=== PATIENT | female | born 1985 | race Caucasian/White ===

== ENCOUNTER 2017-08-28 08:00 | Outpatient (CLI) | payer BC, OTHER ==
[2017-09-01 13:30] LABS: MUDS CUTOFF CONCENTRATIONS CUTOFF CONC BELOW:
[2017-09-01 13:31] LABS: AMPHETAMINE SCREEN,URINE NEGATIVE (NEGATIVE); BENZODIAZEPINES SCREEN, URINE NEGATIVE (NEGATIVE); COCAINE SCREEN URINE NEGATIVE (NEGATIVE); METHADONE SCREEN, URINE NEGATIVE (NEGATIVE); METHAMPHETAMINES SCREEN, URINE NEGATIVE (NEGATIVE); OPIATE SCREEN, URINE NEGATIVE (NEGATIVE); OXYCODONE SCREEN, URINE NEGATIVE (NEGATIVE); PROPOXYPHENE SCREEN, URINE NEGATIVE (NEGATIVE); TRICYCLIC ANTIDEPRESSANT,URINE NEGATIVE (NEGATIVE)
== END 2017-08-28 23:59 ==
LOC: LAB.R 08:00
PROVIDERS: ATTEND Nurse Practitioner Obstetrics & Gynecology
DX: Z34.81 Encounter for supervision of other normal pregnancy, first trimester (principal); Z11.3 Encounter for screening for infections with a predominantly sexual mode of transmission
CPT/HCPCS: 80306; 87491; 87591

== ENCOUNTER 2017-09-11 12:51 | Outpatient (CLI) | payer BC ==
[2017-09-11 13:07] LABS: BASOPHILS % (AUTO) 0.3 %; EOSINOPHILS % (AUTO) 0.5 %; HGB - HEMOGLOBIN 12.7 g/dL (12.0-16.0); LYMPHOCYTES # (AUTO) 2.2 10^3/uL (1.5-3.5); MEAN CORPUSCULAR HEMOGLOBIN 30.9 pg (27.0-31.0); MEAN CORPUSCULAR VOLUME 90.9 fL (81.0-99.0); MEAN PLATELET VOLUME 9.4 fL (7.9-10.8); MONOCYTES # (AUTO) 0.3 10^3/uL (0.0-1.0); MONOCYTES % (AUTO) 3.6 %; NEUTROPHILS # (AUTO) 6.2 10^3/uL (1.5-6.6); NEUTROPHILS % (AUTO) 70.6 %; PLT - PLATELET COUNT 230 10^3/uL (130-450); RED BLOOD COUNT 4.12 10^6/uL (4.20-5.40); RED CELL DISTRIBUTION WIDTH 13.2 % (12.0-15.0); WHITE BLOOD COUNT 8.8 x10^3/uL (4.8-10.8)
[2017-09-11 14:03] LABS: BILIRUBIN,URINE NEGATIVE (NEGATIVE); GLUCOSE, URINE (UA) NEGATIVE (NEGATIVE); KETONES,URINE (UA) NEGATIVE (NEGATIVE); LEUKOCYTE ESTERASE, URINE NEGATIVE (NEGATIVE); NITRITE,URINE NEGATIVE (NEGATIVE); OCCULT BLOOD,URINE NEGATIVE (NEGATIVE); PROTEIN,URINE NEGATIVE (NEGATIVE); UROBILINOGEN,URINE 0.2 (NORMAL) E.U./dL (NORMAL)
[2017-09-11 14:13] LABS: BACTERIA,URINE Many /HPF (None Seen); CLARITY,URINE CLEAR (CLEAR); OVAL FAT BODIES,URINE RARE /HPF; RBC,URINE 0-5 /HPF (0-5); SQUAMOUS EPITHELIAL CELL,UR MOD Squamous (<= Few)
[2017-09-14 08:57] LABS: HEPATITIS B SURFACE ANTIGEN NON-REACTIVE (NON-REACTIVE)
[2017-09-14 08:58] LABS: HEPATITIS C ANTIBODY NON-REACTIVE (NON-REACTIVE)
[2017-09-14 15:21] LABS: HIV AG/AB 4TH GEN NON-REACTIVE (NON-REACTIVE)
== END 2017-09-11 12:52 | disposition home or self-care (01) ==
LOC: LAB 12:51
PROVIDERS: ATTEND Nurse Practitioner Obstetrics & Gynecology
DX: Z34.81 Encounter for supervision of other normal pregnancy, first trimester (principal)
CPT/HCPCS: 36415; 81001; 81599; 85025; 86762; 86803; 86850; 86900; 86901; 87340; 87389

== ENCOUNTER 2017-11-19 07:34 | Outpatient (CLI) | payer BC ==
--- NOTE | 2017-11-19 10:09 | Ultrasound Report ---
Reason: ENCTR FOR SUPRVSN OF NORMAL , 2ND TRIMEST Procedure Date: 11/19/2017 Accession Number: [id number] / [id number] Procedure: US - OB Detailed Eval CPT Code: FULL RESULT: EXAM: COMPLETE OBSTETRICAL ULTRASOUND EXAM DATE: 11/19/2017 09:27 AM. CLINICAL HISTORY: anatomic survey. COMPARISON: None. TECHNIQUE: Real-time sonographic evaluation of the fetus performed by the hip hop dancer. Multiple real estate representative static images were saved for review. DATING: EGA 20 weeks 1 day with PAULETTE 04/07/2018 based on LMP of 07/01/2017. EGA 20 weeks 5 days with PAULETTE 04/03/2018 based on the current ultrasound. GENERAL EVALUATION Kong . Cardiac activity: 148 bpm. movement: Present. Presentation: Variable. Placenta: Anterior position with fundal wrap. No evidence for previa. Umbilical cord: 3 vessel cord. Central placental cord origin. Amniotic fluid: Subjectively normal. MVP 5.3 cm. BIOMETRY Bi-Parietal Diameter (BPD): 4.9 cm, 20 weeks 5 days Head Circumference (HC): 18.4 cm, 20 weeks 6 days Abdominal Circumference (AC): 15.6 cm, 20 weeks 5 days Femur Length (FL): 3.3 cm, 20 weeks 2 days Estimated Weight: 364 gm, 70th percentile . ANATOMY The intracranial structures, profile, face/nose/lips, spine, 4 chamber heart and outflow tracts, stomach, abdominal wall and cord insertion, diaphragm, kidneys, bladder, and extremities were imaged and demonstrate no abnormality. MATERNAL STRUCTURES Uterus: Unremarkable. Cervix: Long and closed. Transabdominal length 4.6 cm. Right ovary/adnexa: Unremarkable. Left ovary/adnexa: Unremarkable. Free fluid: None. IMPRESSION: 1. Kong intrauterine with gestational age 20 weeks 5 days based on composite ultrasound measurements today. 2. Estimated weight is within expected limits for assigned dating. 3. Normal anatomic survey. No anatomic abnormalities are detected at this time. 4. Assigned PAULETTE is 04/07/2018 based on LMP. [place]
== END 2017-11-19 07:35 | disposition home or self-care (01) ==
LOC: DI 07:34
PROVIDERS: ATTEND Registered Nurse
DX: Z34.82 Encounter for supervision of other normal pregnancy, second trimester (principal); Z3A.20 20 weeks gestation of pregnancy
CPT/HCPCS: 76811

== ENCOUNTER 2018-01-08 11:33 | Outpatient (CLI) | payer BC ==
[2018-01-08 18:11] LABS: HGB - HEMOGLOBIN 11.6 g/dL (12.0-16.0); MEAN CORPUSCULAR HEMOGLOBIN 32.7 pg (27.0-31.0); MEAN CORPUSCULAR HGB CONC 34.5 g/dL (32.0-36.0); MEAN CORPUSCULAR VOLUME 94.9 fL (81.0-99.0); MEAN PLATELET VOLUME 10.3 fL (7.9-10.8); RED BLOOD COUNT 3.56 10^6/uL (4.20-5.40); RED CELL DISTRIBUTION WIDTH 13.3 % (12.0-15.0); WHITE BLOOD COUNT 9.4 x10^3/uL (4.8-10.8)
== END 2018-01-08 11:34 | disposition home or self-care (01) ==
LOC: LAB.F 11:33
PROVIDERS: ATTEND Nurse Practitioner Obstetrics & Gynecology
DX: Z36.9 Encounter for antenatal screening, unspecified (principal)
CPT/HCPCS: 36415; 82950; 85027; 86850

== ENCOUNTER 2018-01-22 06:59 | Outpatient (CLI) | payer BC | END 2018-01-22 07:00 | disposition home or self-care (01) | LOC: LAB 06:59 | PROVIDERS: ATTEND Nurse Practitioner Obstetrics & Gynecology | DX: R73.02 Impaired glucose tolerance (oral) (principal) | CPT/HCPCS: 36415; 82951; 82952 ==

== ENCOUNTER 2018-03-05 14:38 | Outpatient (CLI) | payer BC | END 2018-03-05 23:59 | disposition home or self-care (01) | LOC: LAB.R 14:38 | PROVIDERS: ATTEND Registered Nurse | DX: Z33.1 Pregnant state, incidental (principal) | CPT/HCPCS: 87491; 87591; 87797 ==

== ENCOUNTER 2018-04-02 14:01 | Outpatient (CLI) | payer BC ==
[2018-04-03 12:17] LABS: HIV AG/AB 4TH GEN NON-REACTIVE (NON-REACTIVE)
[2018-04-03 12:56] LABS: HEPATITIS C ANTIBODY NON-REACTIVE (NON-REACTIVE)
== END 2018-04-02 14:02 | disposition home or self-care (01) ==
LOC: LAB.F 14:01
PROVIDERS: ATTEND Registered Nurse
DX: Z33.1 Pregnant state, incidental (principal)
CPT/HCPCS: 36415; 81599; 86803; 87389; 87522

== ENCOUNTER 2018-04-08 13:47 | Inpatient (IN) | payer BC ==
[2018-04-08] MEDS ORDERED: OXYTOCIN 10 UNIT/ML VIAL IM ONE (14:35)
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
[2018-04-08 16:09] LABS: BASOPHILS # (AUTO) 0.1 10^3/uL (0.0-0.1); BASOPHILS % (AUTO) 0.5 %; EOSINOPHILS % (AUTO) 0.1 %; HGB - HEMOGLOBIN 12.7 g/dL (12.0-16.0); LYMPHOCYTES # (AUTO) 1.8 10^3/uL (1.5-3.5); LYMPHOCYTES % (AUTO) 16.8 %; MEAN CORPUSCULAR HEMOGLOBIN 31.9 pg (27.0-31.0); MEAN CORPUSCULAR VOLUME 93.8 fL (81.0-99.0); MEAN PLATELET VOLUME 10.1 fL (7.9-10.8); MONOCYTES # (AUTO) 0.5 10^3/uL (0.0-1.0); MONOCYTES % (AUTO) 4.9 %; NEUTROPHILS # (AUTO) 8.5 10^3/uL (1.5-6.6); NEUTROPHILS % (AUTO) 77.7 %; PLT - PLATELET COUNT 185 10^3/uL (130-450); RED BLOOD COUNT 3.99 10^6/uL (4.20-5.40); RED CELL DISTRIBUTION WIDTH 13.1 % (12.0-15.0)
--- NOTE | 2018-04-08 18:25 | PROVIDER PROGRESS NOTE ---
Labor Progress Note - Uterine Monitoring Uterine Monitoring Mode: positive: Palpation Contraction Frequency (min/apart): 2-3 Contraction Intensity: positive: Strong Uterine Resting Tone: positive: Soft - Monitoring Monitor Mode: positive: Doppler/auscultation (130bpm +increases, no decreases) Heart Rate Baseline: 130 - Vaginal Exam Dilation (in cm): deferred - Labor Progress Note Labor Progress Note/Additional Text: S: Ayana is uncomfortable & utilizing nitrous oxide w/ good effect for discomfort. She is shaking & feeling intermittent perineal pressure. O: AAOx3, very uncomfortable gravid female VSS FHTs 130s w/ doptone +increases, no decreases palpable strong contractions q2-3 min x60-100 seconds SVE deferred A: 32 y/o @ 40w1d in active, spontaneous labor GBS negative, IBOW Nitrous oxide for discomfort FHTs reassuring Coping well w/ use of nitrous oxide, does not desires alternate analgesia P: 1. Reassess cervical status w/ urge to push 2. Reviewed labor physiology, likely transition 3. Reviewed anticipatory guidance 4. IV inserted for use of NO2, reviewed rationale, will plan IV Pit for AMTSL w/ delivery of anterior shoulder 5. Anticipate 2nd stage shortly
[2018-04-08] MEDS ORDERED: OXYTOCIN/SODIUM CHLORIDE 500 ML IV SCH (19:00)
--- NOTE | 2018-04-08 19:09 | PROVIDER PROGRESS NOTE ---
Labor Progress Note - Uterine Monitoring Uterine Monitoring Mode: positive: Palpation Contraction Frequency (min/apart): 2-3 Contraction Intensity: positive: Strong Uterine Resting Tone: positive: Soft - Monitoring Monitor Mode: positive: Doppler/auscultation (130bpm base rate, +increases, no decreases) Heart Rate Baseline: 130 - Vaginal Exam Dilation (in cm): 8 Effacement (%): 100 Station: 1 Cervical Position: Anterior - Labor Progress Note Labor Progress Note/Additional Text: S: Ayana is utilizing NO2 w/ contractions & was reporting intermittent rectal discomfort w/ desire for cervical evaluation; no consistent urge to bear down. Her labor support friend, Reina, is present @ the bedside & actively involved, as is Samm. Ayana is coping well but feeling shaky & slightly panicky @ this time. O: AAOx3, uncomfortable gravid female VSS FHTs 130bpm +increases, no decreases w/ handheld doppler for IA Uterine contractions palpable q2-3 minutes x60-90 seconds, strong SVE: 8/100/+1 w/ descent appreciable through contraction A: 32 y/o @ 40w1d by first trimester US, spontaneous active labor w/ progressive cervical change FHTs reassuring by intermittent auscultation GBS neg w/ IBOW NO2 for analgesia, coping well Transition phase P: 1. Reviewed labor physiology, anticipatory guidance for 2nd stage labor 2. Reviewed optimal maternal positioning to facilitate descent 3. Continue NO2 use as pt desires 4. Anticipate 2nd stage shortly
[2018-04-08] MEDS ORDERED: MEASLES,MUMPS & RUBELLA VACC 0.5 ML VIAL SUBQ ONE (19:23)
[2018-04-08] MEDS ORDERED: SODIUM CHLORIDE FLUSH 0.9% 10 ML SYRINGE ONE (20:41)
[2018-04-08] MEDS ORDERED: LIDOCAINE-MPF 1% 30 ML VIAL ONE (20:56)
--- NOTE | 2018-04-08 21:50 | PROVIDER PROGRESS NOTE ---
Labor Progress Note - Uterine Monitoring Uterine Monitoring Mode: positive: Palpation Contraction Frequency (min/apart): 2-3 x60-90 seconds Contraction Intensity: positive: Strong Uterine Resting Tone: positive: Soft - Monitoring Monitor Mode: positive: Doppler/auscultation Heart Rate Baseline: 130 - Vaginal Exam Dilation (in cm): persistent anterior lip x1.5 hours Effacement (%): 100 Station: 1 Cervical Position: Anterior - Labor Progress Note Labor Progress Note/Additional Text: S: Ayana is uncomfortable w/ her contractions, feeling frustrated & tired, utilizing NO2 for discomfort; Samm & Reina are present @ the bedside & involved & very supportive. O: AAox3, uncomfortable, gravid female VSS FHTs 135base+increases, no decreases uterine contractions palpable q2-3 min x60-90 seconds, strong SVE: ant lip, nonreducible/100/1, BBOW AROM'ed for moderate CAF, position AMRIK, anteriorly asynclitic A: 32 y/o @ 40w1d, spontaneous active labor w/ progressive cervical change asynclitism GBS negative, AROMed for CAF, afebrile FHTs reassuring by IA NO2 for analgesia, coping well but getting exhausted, excellent bedside labor support P: 1. Reviewed optimal maternal positioning to facilitate rotation & descent 2. Reviewed implications of asynclitism 3. Reviewed all options for pain management & potential benefits 4. Reassess cervical status x2 hours, earlier PRN; if persistent anterior lip, begin Pitocin augmentation 5. Reviewed plan of care w/ pt, partner & RN @ bedside; all in agreement, tresa vines concerns
[2018-04-08] MEDS ORDERED: fentaNYL 100 MCG/2 ML VIAL IVP PRN (22:06)
[2018-04-08] MEDS ORDERED: fentaNYL 100 MCG/2 ML VIAL IVP ONE (22:08)
[2018-04-08] MEDS ORDERED: fentaNYL 100 MCG/2 ML VIAL ONE (22:09)
[2018-04-08] MEDS ORDERED: LACTATED RINGERS 1,000 ML IV ONE (23:15)
[2018-04-09] MEDS ORDERED: MAGNESIUM HYDROXIDE 2,400 MG/30 ML UDC PO PRN (00:54)
[2018-04-09] MEDS ORDERED: HYDROCORTISONE/PRAMOXINE 10 GM PR PRN (00:54)
[2018-04-09] MEDS ORDERED: WITCH HAZEL/GLYCERIN 1 EACH MED..PAD TOP PRN (00:54)
[2018-04-09] MEDS ORDERED: HYDROCORTISONE 1% CREAM 28 GM TUBE PR PRN (00:54)
--- NOTE | 2018-04-09 00:54 | DELIVERY NOTE ---
Delivery Note - Labor Labor: positive: Spontaneous, Augmented by ARM (@21:15, for a total ruptured duration of 3 hours, 4 minutes) - Infant Delivery Method Infant Delivery Method: positive: Spontaneous vaginal delivery - Presentation Presentation: positive: Vertex, JONAH - right occiput anterior - Nuchal Cord Nuchal Cord: positive: None - Anesthetic Anesthetic Type: Anesthetic: positive: Lidocaine - 1% plain Volume: positive: Other (15mL) - Amniotic Fluid Description Amniotic Fluid Description: positive: Clear - Episiotomy Type Episiotomy Type: positive: None - Laceration Laceration: positive: 2nd degree, Vaginal - Suture Suture Type: positive: Vicryl Suture Size: positive: 2-0 - Delivery Outcome Delivery Outcome: positive: Livebirth - [place]: positive: Placed in direct skin contact with mother, Stimulated, Warmed, Lane used sex: positive: Male - Cord Cord: positive: 3 vessels - Placenta Placenta: positive: Intact, Spontaneous - Estimated Blood Loss Estimated Blood Loss (in cc): 150 - Post Delivery Events Post Delivery Events: positive: No post delivery events - Delivery Comments (Free Text/Narrative) Delivery Comments (Free Text/Narrative): Ayana Valenzuela is a 32 y/o [id number] who presented in spontaneous active labor @ 40w1d & progressed spontaneously to 9cm dilatation w/ use of NO2 as her only intervention. She had a persistent, non-reducible anterior lip x1.5 hours & elected to undergo AROM for CAF @ that point for augmentation (@21:15). She received 1 dose of 100mcg fentanyl for analgesia & utilized peanut ball & position changes x1.5 hours thereafter, then elected to attempt repeated reduction of anterior lip, which was successful; she was complete & +1 @ 22:58, for a total first stage duration of 9 hours, 58 minutes. FHTs were monitored both electronically & w/ doptone t/o & were consistent reassuring or cat I. Ayana pushed w/ significant direction to viable male in AMRIK position @ 0019 over a 2nd degree vaginal laceration, for a total 2nd stage duration of 1hr, 21 minutes. Infant vigorous w/ spontaneous, lusty cry. Placed to maternal abd for drying, stim. Delayed cord clamping until cessation of pulsation, then cord clamped x2 by CNM, cut by FOB. 3VC noted, cord blood obtained. Active management of the 3rd stage delayed for ineffectively infusing IV; 10units IM Pitocin adminstered x1 after delivery of placenta, which was spontaneous, intact, Letty, @ 0023, for a total 3rd stage duration of 4 minutes. FF @ U. EBL 150mL. Vagina & perineum inspected & 2nd degree vaginal laceration noted; repaired s/p infiltration w/ 15mL 1% lidocaine using 2-0 vicryl. hemostatic & well-approximated. Mother & stable; apgars 8/9, planning to breastfeed. actively suckling in sustained fashion <15 minutes s/p delivery.
[2018-04-09] MEDS: ACETAMINOPHEN 500 MG TABLET PO SCH ×3 (01:41→20:27)
[2018-04-09] MEDS: IBUPROFEN 800 MG TABLET PO SCH ×4 (01:41→21:32)
[2018-04-09] MEDS: LIDOCAINE-MPF 1% 2 ML AMP SUBQ ONE ×2 (07:52→08:29)
[2018-04-09] MEDS: DOCUSATE SODIUM 100 MG CAPSULE PO SCH ×2 (09:32→20:26)
--- NOTE | 2018-04-09 11:21 | PROVIDER PROGRESS NOTE ---
Subjective - Prog Note Date Prog Note Date: 04/09/18 Prog Note Time: 08:30 - Subjective Pt reports feeling: Improved Subjective: Ayana is doing well, although she is tired. She is ambulating & voiding w/o difficulty. She is passing flatus & tolerating a regular diet. She reports adequate pain control w/ non-opioid analgesia. She reports moderate lochia rubra. She is exclusively w/o discomfort. She reports 2 successful attempts x1 hour in total b/l since delivery. She is delighted w/ her son & proud of her delivery. Objective - Vital Signs/Intake & Output Reviewed Vital Signs: Yes Vital Signs: Vital Signs x48h Temp Pulse Resp BP Pulse Ox 04/09/18 08:50 36.8 C 68 16 119/65 100 04/09/18 04:50 36.9 C 80 17 115/69 98 04/09/18 03:21 36.8 C 72 18 129/69 98 Intake & Output: Intake & Output 04/06/18 04/07/18 04/08/18 04/09/18 23:59 23:59 23:59 23:59 Intake Total 100 Balance 100 - Objective General Appearance: positive: No acute distress, Alert Eyes Bilateral: positive: Normal inspection, PERRL, EOMI Respiratory: positive: Chest non-tender, No respiratory distress, Breath sounds nml Cardiovascular: positive: Regular rate & rhythm, No murmur, No gallop Abdomen: positive: Non-tender, Other (FF @ U) Skin: positive: Color nml, No rash, Warm, Dry Extremities: positive: Non-tender, Full ROM, Nml appearance, No pedal edema. negative: Calf tenderness, Steve's sign/cords Neurologic/Psychiatric: positive: Oriented x3, CN's nml (2-12), Motor nml, Sensation nml, Mood/affect nml Comments/Other: Breasts b/l s, nt; nipples b/l intact & everted; perineum w/ sutures intact, no erythema/edema/ecchymosis, moderate lochia rubra - Lab Results Fish Bones: 04/08/18 16:01 Other Labs: Lab Results x24hrs 04/08/18 Range/Units 16:01 WBC 11.0 H (4.8-10.8) x10^3/uL RBC 3.99 L (4.20-5.40) 10^6/uL Hgb 12.7 (12.0-16.0) g/dL Hct 37.5 (37.0-47.0) % MCV 93.8 (81.0-99.0) fL MCH 31.9 H (27.0-31.0) pg MCHC 34.0 (32.0-36.0) g/dL RDW 13.1 (12.0-15.0) % Plt Count 185 (130-450) 10^3/uL MPV 10.1 (7.9-10.8) fL Neut # (Auto) 8.5 H (1.5-6.6) 10^3/uL Lymph # (Auto) 1.8 (1.5-3.5) 10^3/uL Worth # (Auto) 0.5 (0.0-1.0) 10^3/uL Eos # (Auto) 0.0 (0.0-0.7) 10^3/uL Baso # (Auto) 0.1 (0.0-0.1) 10^3/uL Absolute Nucleated RBC 0.01 x10^3/uL Nucleated RBC % 0.1 /100WBC ABX Reporting Has patient been on IV antibiotics over the past 48 hours?: No Assessment/Plan - Problem List (1) (normal spontaneous vaginal delivery) Impression: 32 y/o s/p w/ 2nd degree laceration w/ repair 04/09/18 DOD Normal uterine involution Adequate pain control w/ non-opioid analgesia well 1. Continue routine pp care 2. support provided & to continue in ongoing fashion 3. Anticipate d/c home PPD#1, per pt request if infant stable for d/c
[2018-04-10] MEDS: IBUPROFEN 800 MG TABLET PO SCH ×2 (04:30→10:32)
[2018-04-10 08:25] VITALS: BP 111/65
[2018-04-10] MEDS: DOCUSATE SODIUM 100 MG CAPSULE PO SCH (08:51)
--- NOTE | 2018-04-10 09:48 | Discharge Plan ---
Discharge Plan Disposition: 01 Home, Self Care Condition: Good Diet: Regular Activity Restrictions: pelvic rest x6 weeks Shower Restrictions: No Driving Restrictions: No Weight Bearing: Full Weight Instruction Topics: Vaginal After, Breastfeed How To, Exercises Kegel Additional Instructions or Follow Up instructions: f/u w/ Drew Menendez CNM, x1 week, earlier PRN No Smoking: If you smoke, Please STOP! Call for help. Follow-up with: Drew Menendez CNM, TANNERY GUMMER [Provider Admit Priv/Credential] -
--- NOTE | 2018-04-10 09:50 | DISCHARGE SUMMARY ---
"Discharge Summary Admit Date: 04/08/18 Discharge Date: 04/10/18 Discharging Provider: SHASTA Code Status: Attempt Resuscitation Condition at Discharge: Good Discharge Disposition: Home, Self Care Discharge Facility Name: [facility] - DIAGNOSES Admission Diagnoses: ACTIVE SPONTANEOUS LABOR @ 40 WEEKS' GESTATION Discharge Diagnoses with Status of Each Condition: - HPI History of Present Illness: Ayana Valenzuela is a 32 y/o [id number] who presented in spontaneous, active labor @ 40 weeks' gestation. She progressed to anterior lip w/ use of NO2 for discomfort. She then underwent AROM & received a single dose of IV fentanyl. She had a persistent anterior lip that was ultimately reduced. She delivered a viable male vaginally w/o complication over a 2nd degree vaginal laceration, which was repaired. - CONSULTS | PROCEDURES Consultations: None Procedures: repair of vaginal laceration - HOSPITAL COURSE Hospital Course: , Ayana is doing well. She is ambulating & voiding w/o difficulty or discomfort. She is passing flatus & tolerating a regular diet. She denies incontinence. She denies discomfort & reports adequate pain control when she has needed ibuprofen. She is well w/ excellent latch & no discomfort. She reports minimal lochia rubra. She is planning to return to work & has a breast pump; she has been instructed in its use. She reports excellent social support. She is not planning another @ this time & she is planning 6- wk pp Mirena IUS insertion. She denies a hx of depression & is cognizant of mood changes. She is able to fully articulate pp warning s/sx, including pp depression s/sx, and pp aftercare instructions. She is ready to leave the hospital. - ALLERGIES Allergies/Adverse Reactions: Allergies Allergy/AdvReac Type Severity Reaction Status Date / Time No Known Drug Allergies Allergy Verified 04/08/18 14:39 - MEDICATIONS Home Medications: Ambulatory Orders Medication Instructions Recorded Confirmed Pnv95/Ferrous Fumarate/FA 1 each PO 04/08/18 [ Tablet] Ibuprofen [Motrin] 800 mg PO Q6H tablet 04/10/18 - PHYSICAL EXAM AT DISCHARGE General Appearance: positive: No acute distress, Alert Eyes Bilateral: positive: Normal inspection, PERRL, EOMI Respiratory: positive: Chest non-tender, No respiratory distress, Breath sounds nml Cardiovascular: positive: Regular rate & rhythm, No murmur, No gallop Abdomen: positive: Non-tender, No distention, Other (FF u-1) Skin: positive: Color nml, No rash, Warm, Dry Extremities: positive: Non-tender, Full ROM, Nml appearance, No pedal edema. negative: Calf tenderness, Steve's sign/cords Neurologic/Psychiatric: positive: Oriented x3, CN's nml (2-12), Motor nml, Sensation nml, Mood/affect nml Physical Exam Other/Comments: Breasts b/l s, nt; nipples b/l intact & everted; colostrum readily expressible; latch observed, consistently 10/10 Perineum w/ sutures intact, no erythema/edema/ecchymosis; minimal lochia rubra - LABS Result Diagrams: 04/08/18 16:01 - FOLLOW UP Follow Up: x1 week, x3 weeks, x6 weeks & x10 weeks w/ Drew Menenedz CNM, earlier PRN - TIME SPENT Time Spent in Discharge (Minutes): 20"
[2018-04-10] MEDS ORDERED: MEASLES,MUMPS & RUBELLA VACC 0.5 ML VIAL SUBQ ONE (13:00)
--- NOTE | 2018-04-10 16:04 | Labor Flowsheet ---
Labor Flowsheet Datetime Report Generated by CPN: 04/10/2018 16:04 Datetime: 04/10/2018 07:58 VITAL SIGNS NBP Sys/Kristen/Mean (mmHg): 111 : 65 : 76 Pulse: 47 Datetime: 04/09/2018 05:44 Membranes Ruptured Date/Time: 04/08/2018 21:15 Membranes Rupture Method: Artificial Amniotic Fluid Color: Clear Amniotic Fluid Amount: Moderate Amniotic Fluid Odor: Normal Datetime: 04/09/2018 01:44 SpO2 (%): 100 Datetime: 04/09/2018 00:30 Stage of : Datetime: 04/09/2018 00:28 COMMUNICATION LaborFlag: Labor Datetime: 04/09/2018 00:11 ASSESSMENT A Monitor Mode: External US FHR Baseline Rate : 120 Datetime: 04/09/2018 00:05 UTERINE ACTIVITY Monitor Mode: External Monitor Interventions for UA: [place] Adjusted Frequency (min): 2-4 Quality: Strong Duration (sec): 70-100 Pattern: Normal: <= 5 Contractions in 10 Minutes Resting Tone (Palpate): Relaxed Monitor Interventions for FHR: Ultrasound Adjusted FHR Baseline Changes: No Baseline Change Datetime: 04/09/2018 00:03 Respirations: 20 Temperature (C): 36.9 Datetime: 04/08/2018 23:32 Variability: Moderate 6-25 bpm Accelerations: 15X15 Decelerations: Late Actions for Decelerations: Side to Side; Oxygen Applied; Sterile Vaginal Exam; Provider Notif ied Datetime: 04/08/2018 23:09 Comments: provider at bedside Datetime: 04/08/2018 22:15 Category: Category I Datetime: 04/08/2018 21:55 Temperature Route: Oral Pain Relief Measures: Nitrous oxide Pain Assessment Comments: grimacing, moaning and breathing thru contractions, desires unmedicated b irth Datetime: 04/08/2018 21:33 VAGINAL EXAM Dilatation (cm): 9.5 Effacement (%): 100 Station: 1 Exam by: Chris Menendez CNM Datetime: 04/08/2018 20:50 MATERNAL ASSESSMENT Level of Consciousness: Fully Conscious DTR's/Clonus: unable to assess, pt in transition Headache: Denies Breath Sounds, Left: Clear and Equal Breath Sounds, Right: Clear and Equal Nausea/Vomiting: Denies RUQ Epigastric Pain: Denies Datetime: 04/08/2018 19:59 PAIN Pain Scale: grimascing, desires No pain meds Pain Presence: Intermittent Pain Type: Contraction Pain Location: Abdomen; Back Pain Coping: Breathing Through Contractions; Crying Datetime: 04/08/2018 19:55 Vital Sign Comments: M MIlagrosa wants no B/P reading until 2040 Datetime: 04/08/2018 18:33 PATIENT CARE Oxygen Method: Room Air Datetime: 04/08/2018 18:30 Vaginal Bleeding: Normal Show Cervix, Consistency: Soft Cervix, Position: Anterior Datetime: 04/08/2018 18:20 ASSESSMENT B FHR Baseline Rate : 125 FHR Baseline Changes: No Baseline Change ASSESSMENT C Monitor Mode: Auscultation/Fetoscope ASSESSMENT D Comments: 125-130 before, during and after ctx Datetime: 04/08/2018 15:20 Comfort Measures: Hot Shower/Tub/Spa; Family Support
== END 2018-04-10 12:30 | disposition home or self-care (01) | DRG 807 ==
LOC: WFO 13:47 → FBP 13:48 → WFO 14:54
PROVIDERS: ADMIT Registered Nurse; ATTEND Registered Nurse
PROC: 10E0XZZ Delivery of Products of Conception, External Approach (ICD-10-PCS; principal; 2018-04-09)
PROC: 0KQM0ZZ Repair Perineum Muscle, Open Approach (ICD-10-PCS; 2018-04-09)
PROC: 10907ZC Drainage of Amniotic Fluid, Therapeutic from Products of Conception, Via Natural or Artificial Opening (ICD-10-PCS; 2018-04-09)
PROC: 3E0234Z Introduction of Serum, Toxoid and Vaccine into Muscle, Percutaneous Approach (ICD-10-PCS; 2018-04-09)
DX: O71.4 Obstetric high vaginal laceration alone (principal); Z37.0 Single live birth; Z23 Encounter for immunization; Z3A.40 40 weeks gestation of pregnancy
CPT/HCPCS: 36415; 85025; 99211

== ENCOUNTER 2018-05-14 12:35 | Outpatient (CLI) | payer BC | END 2018-05-14 12:36 | disposition home or self-care (01) | LOC: LAB.F 12:35 | PROVIDERS: ATTEND Registered Nurse | DX: O92.70 Unspecified disorders of lactation (principal) | CPT/HCPCS: 36415; 84443 ==

== ENCOUNTER 2019-01-12 14:33 | Outpatient (CLI) | payer BC ==
--- NOTE | 2019-01-12 15:44 | Ultrasound Report ---
Reason: INTRAUTERINE CONTRACEPTIVE DEVICE SURVEILLANCE Procedure Date: 01/12/2019 Accession Number: [id number] / [id number] Procedure: US - Pelvic w/Transvaginal CPT Code: FULL RESULT: EXAM: PELVIC ULTRASOUND. EXAM DATE: 01/12/2019 03:20 PM. CLINICAL HISTORY: Intrauterine contraceptive device surveillance. Lost string. Pelvic pain. COMPARISON: None. TECHNIQUE: Realtime transabdominal pelvic scan performed to identify the uterus and adnexa and as an overview of other pelvic structures, followed by transvaginal scan to provide greater detail of the uterus and adnexa, with static image documentation. FINDINGS: Uterus: 7.6 x 2.8 x 4.4 cm, volume 49.0 cc. Anteverted position. Normal overall size and echotexture. Masses: None. Endometrium: 5 mm. Normal. Cervix: Unremarkable. Right Ovary: 3.8 x 2.0 x 3.1 cm, volume 12.3 cc. Normal echotexture and blood flow. Left Ovary: 3.3 x 2.4 x 2.8 cm, volume 11.6 cc. Normal echotexture and blood flow. Free Fluid: Small amount. Other: IUD in the posterior cul-de-sac. IMPRESSION: IUD in the posterior cul-de-sac, with a small amount of surrounding free fluid. Otherwise unremarkable pelvic ultrasound. RADIA
--- NOTE | 2019-01-12 16:18 | XRAY Report ---
Reason: Intrauterine Contraceptive Device Surveillance Procedure Date: 01/12/2019 Accession Number: [id number] / [id number] Procedure: XR - Abdomen 2 View X-Ray CPT Code: 74924 FULL RESULT: EXAM: ABDOMEN RADIOGRAPHY EXAM DATE: 01/12/2019 04:06 PM. CLINICAL HISTORY: Intrauterine Contraceptive Device Surveillance. COMPARISON: None. TECHNIQUE: 2 views. FINDINGS: Lung Bases: Unremarkable. Bowel Gas Pattern: Within normal limits. No dilated loops or abnormal fluid levels. Free Air: None. Other: None. IMPRESSION: Intrauterine device projects over the pelvis. RADIA
== END 2019-01-12 14:34 | disposition home or self-care (01) ==
LOC: DI 14:33
PROVIDERS: ATTEND Nurse Practitioner Obstetrics & Gynecology
DX: Z30.431 Encounter for routine checking of intrauterine contraceptive device (principal)
CPT/HCPCS: 74019; 76830; 76856

== ENCOUNTER 2019-01-14 07:32 | Day surgery (SDC) | payer BC ==
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
[2019-01-14] MEDS ORDERED: DEXAMETHASONE 4 MG/ML VIAL IVP ONE (07:33)
[2019-01-14] MEDS ORDERED: fentaNYL 100 MCG/2 ML VIAL IVP ONE (07:33)
[2019-01-14] MEDS ORDERED: MIDAZOLAM 2 MG/2 ML VIAL IVP ONE (07:33)
[2019-01-14] MEDS ORDERED: ROCURONIUM 50 MG/5 ML VIAL IVP ONE (07:33)
[2019-01-14] MEDS ORDERED: PROPOFOL 200 MG/20 ML VIAL IVP ONE (07:33)
[2019-01-14] MEDS ORDERED: ONDANSETRON 4 MG/2 ML VIAL IVP ONE (07:33)
[2019-01-14] MEDS ORDERED: GLYCOPYRROLATE 1 MG/5 ML VIAL IVP ONE (07:33)
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
[2019-01-14] MEDS ORDERED: LACTATED RINGERS 1,000 ML IV ONE ×2 (08:17→09:53)
[2019-01-14 08:18] LABS: BASOPHILS % (AUTO) 0.6 %; EOSINOPHILS # (AUTO) 0.1 10^3/uL (0.0-0.7); EOSINOPHILS % (AUTO) 1.9 %; HGB - HEMOGLOBIN 13.9 g/dL (12.0-16.0); MEAN CORPUSCULAR HEMOGLOBIN 28.7 pg (27.0-31.0); MEAN CORPUSCULAR HGB CONC 32.6 g/dL (32.0-36.0); MEAN PLATELET VOLUME 10.7 fL (7.9-10.8); MONOCYTES # (AUTO) 0.4 10^3/uL (0.0-1.0); MONOCYTES % (AUTO) 7.2 %; NEUTROPHILS # (AUTO) 2.9 10^3/uL (1.5-6.6); NEUTROPHILS % (AUTO) 53.1 %; PLT - PLATELET COUNT 281 10^3/uL (130-450); RED BLOOD COUNT 4.84 10^6/uL (4.20-5.40); RED CELL DISTRIBUTION WIDTH 12.5 % (12.0-15.0); WHITE BLOOD COUNT 5.4 x10^3/uL (4.8-10.8)
[2019-01-14 08:20] LABS: HCG UR QUAL NEGATIVE
[2019-01-14] MEDS ORDERED: SODIUM CHLORIDE 0.9% MINIBAG 100 ML IV ONE (08:32)
[2019-01-14] MEDS ORDERED: CEFAZOLIN SODIUM IN 0.9 % NACL 2 GM/100 ML BAG IV ONE (08:32)
[2019-01-14] MEDS ORDERED: ACETAMINOPHEN 1,000 MG/100 ML 100 ML IV ONE (08:32)
[2019-01-14] MEDS ORDERED: BUPIVACAINE 0.5%-EPI 1:200000 PF 30 ML VIAL ONE (09:09)
[2019-01-14] MEDS ORDERED: BUPIVACAINE 0.5%-EPI 1:200000 PF 30 ML VIAL SUBQ ONE ×2 (09:55)
--- NOTE | 2019-01-14 11:09 | OPERATIVE REPORT ---
Operative Report - General Planned Procedure: Diagnostic laparoscopy with extraction of displaced IUD, possible hysteroscopy, possible cystoscopy, possible tissue repair Pre-Op Diagnosis: Displaced IUD and pelvic pain Procedure Performed: Laparoscopic removal of IUD Post Op Diagnosis: Same - Procedure Note Primary Surgeon: Haleigh Shepard MD Secondary Surgeon: none Anesthesia Provider: Kevin Conley CRNA Anesthesia Technique: General ET tube Pathology: None IV Fluids (mL): 900 Estimated Blood Loss (mL): 5 Urine Output (mL): 250 Indications: Pelvic pain with displaced IUD. Ultrasound and x-ray imaging indicate IUD is displaced in the posterior cul-de-sac. Findings: IUD sitting in posterior cul-de-sac. Intact with strings in place. 1 mm portion of right IUD arm embedded in the peritoneum, superficial engagement only. No other tissue damage. Right-sided bowel adhesions, fixing bowel to the right pelvis and abdominal sidewall.Normal-appearing uterus tubes ovaries, and liver edge. Complications: None - Other Other Information/Narrative: Risks benefits and alternatives of the procedure were reviewed. Consent was again confirmed. Patient was brought to the operating room and underwent general anesthesia. She was placed in dorsal lithotomy position with legs resting in yellowfin stirrups. SCDs were in place and activated. Cefazolin 2 g IV was administered prior to start of procedure. She was prepped and draped in the usual sterile fashion. Surgical timeout was performed. Bimanual exam was performed. Sterile speculum was placed and [place] uterine manipulator was placed. The base of the umbilicus was anesthetized with intradermal injection of 0.25% Marcaine. A 5 mm skin incision was made with a scalpel. A 5 mm blunt trocar was inserted under direct visualization using Visiport. Once the port was confirmed to be placed intraperitoneally, the abdomen was insufflated to 15 mmHg with CO2 gas Exploration of the abdomen and pelvis was confirmed that no injury was sustained with placement of the trocar. An additional 5 mm port was placed in the left lower quadrant, taking care to avoid the epigastric arteries, while under direct visualization via laparoscopic guidance. The abdomen was explored with the laparoscope, with findings as noted. The IUD was grasped with blunt graspers and removed from the pelvis, intact, through the laparoscopic trocar. It was examined and found to be intact. The cul-de-sac and the uterus were explored/examined. No IUD injury was noted. Filmy adhesions fixing the bowel to the right sidewall were released using blunt dissection and minimal use of cautery. Good hemostasis was noted. The abdomen was partially desufflated. Good hemostasis was again confirmed. All instruments were removed from the abdomen. Skin was closed with interrupted subcuticular stitches using 4-0 Monocryl. Dermabond was applied over the suture sites. All instruments were removed from the vagina. The final sponge needle and instrument counts were correct at completion of the procedure patient was awakened taken to the postanesthesia care unit in stable condition.
[2019-01-14 11:56] VITALS: BP 119/58
== END 2019-01-14 07:33 | disposition home or self-care (01) ==
LOC: OR 07:32
PROVIDERS: ATTEND Obstetrics & Gynecology
PROC: 0UPD4HZ Removal of Contraceptive Device from Uterus and Cervix, Percutaneous Endoscopic Approach (ICD-10-PCS; principal; 2019-01-14 08:30)
DX: Z30.432 Encounter for removal of intrauterine contraceptive device (principal); T83.32XA Displacement of intrauterine contraceptive device, initial encounter; R10.2 Pelvic and perineal pain; K66.0 Peritoneal adhesions (postprocedural) (postinfection)
CPT/HCPCS: 49329; 81025; 85025; J0131; J0690; J7120

== ENCOUNTER 2021-03-01 11:00 | Outpatient (CLI) | payer BC ==
--- NOTE | 2021-03-04 13:42 | Ultrasound Report ---
LIMITED ULTRASOUND OF LEFT BREAST: 03/01/2021 CLINICAL: Palpable left breast lump. Comparison is made to exam dated: 03/01/2021 mammogram - [facility]. Real-time ultrasound of the left breast 1-2 o'clock region was performed. Phelps scale images of the real-time examination were reviewed. No significant abnormalities were seen sonographically in the left breast. IMPRESSION: NEGATIVE There is no sonographic evidence of malignancy. There is no abnormality seen in the left breast to correspond with the area of clinical concern and p alpable abnormality indicated by triangular marker in the posterior depth in the upper outer quadrant which likely represent normal fibroglandular tissue, however, recommend clinical follow up for persi stent or worsening symptoms, or development of any clinically suspicious findings. Recommend initiating routine screening mammograms at age 40. Findings and recommendations were conveyed to the patient during today's evaluation. This exam was interpreted at Station ID: [id number]. Electronically Signed By: Stepan Taylor M.D. aty/:03/01/2021 12:20:25 Ultrasound BI-RADS: 1 Negative BI-RADS CATEGORY: (1) - 1 RECOMMENDATION: (ADDMAM) - Recommend additional mammographic views. recall n/a LATERALITY: (B)
--- NOTE | 2021-03-04 13:42 | Mammography Report ---
BILATERAL DIGITAL DIAGNOSTIC MAMMOGRAM 3D/2D: 03/01/2021 CLINICAL: Palpable left breast lump. No prior exams were available for comparison. The tissue of both breasts is extremely dense, which l owers the sensitivity of mammography. No significant masses, calcifications, or other findings are seen in either breast. IMPRESSION: INCOMPLETE: NEEDS ADDITIONAL IMAGING EVALUATION There is no abnormality seen in the left breast to correspond with the area of clinical concern, palp able abnormality, and pain indicated by triangular marker in the posterior depth in the upper outer q uadrant. An ultrasound is recommended for further evaluation and is scheduled to immediately follow t his examination. This exam was interpreted at Station ID: [id number]. NOTE: For mammograms, a report in lay terms will be sent to the patient. Approximately 15% of breast malignancies will not be visualized mammographically. In the management of a palpable breast mass, a negative mammogram must not discourage biopsy of a clinically suspicious lesion. Electronically Signed By: Stepan Taylor M.D. aty/:03/01/2021 11:56:39 ACR BI-RADS Category 0: Incomplete 3340F PARENCHYMAL PATTERN: (VD) - The breast(s) demonstrate(s) extremely dense parenchyma, limiting the sen sitivity of mammography. BI-RADS CATEGORY: (0) - 0 Ultrasound [id number] Immediate follow-up LATERALITY: (L)
== END 2021-03-01 11:01 | disposition home or self-care (01) ==
LOC: DI 11:00
PROVIDERS: ATTEND Registered Nurse
DX: N63.21 Unspecified lump in the left breast, upper outer quadrant (principal); R92.8 Other abnormal and inconclusive findings on diagnostic imaging of breast

== ENCOUNTER 2021-04-26 07:13 | Outpatient (CLI) | payer BC ==
[2021-04-26 07:49] LABS: HCT - HEMATOCRIT 42.6 % (37.0-47.0); HGB - HEMOGLOBIN 14.5 g/dL (12.0-16.0); MEAN CORPUSCULAR HEMOGLOBIN 30.4 pg (27.0-31.0); MEAN CORPUSCULAR VOLUME 89.3 fL (81.0-99.0); MEAN PLATELET VOLUME 10.6 fL (7.9-10.8); RED BLOOD COUNT 4.77 10^6/uL (4.20-5.40); RED CELL DISTRIBUTION WIDTH 12.2 % (12.0-15.0); WHITE BLOOD COUNT 4.7 x10^3/uL (4.8-10.8)
[2021-04-26 08:07] LABS: ALBUMIN 4.2 g/dL (3.2-5.5); ALBUMIN/GLOBULIN RATIO 1.4 (1.0-2.2); ALKALINE PHOSPHATASE 21 IU/L (42-121); ALT ALANINE AMINOTRANSFERASE 16 IU/L (10-60); AST ASPARTATE AMINOTRANSFERASE 17 IU/L (10-42); BILIRUBIN,TOTAL 0.8 mg/dL (0.2-1.0); BUN - BLOOD UREA NITROGEN 12 mg/dL (6-20); CALCIUM 8.8 mg/dL (8.5-10.3); CARBON DIOXIDE - CO2 24 mmol/L (21-32); CHLORIDE 100 mmol/L (101-111); CHOL/HDL RATIO 2.5 (<4.4); CHOLESTEROL 184 mg/dL; CREATININE 0.8 mg/dL (0.4-1.0); GFR - MDRD 81 (>89); GLUCOSE 88 mg/dL (70-100); HDL CHOLESTEROL 74 mg/dL; LDL CHOLESTEROL,CALCULATED 100 mg/dL; LDL/HDL RATIO 1.4 (<4.4); SODIUM 134 mmol/L (135-145); TOTAL PROTEIN 7.1 g/dL (6.7-8.2); TRIGLYCERIDES 50 mg/dL; VLDL CHOLESTEROL 10 mg/dL
[2021-04-26 08:16] LABS: THYROID STIMULATING HORMONE 2.02 uIU/mL (0.34-5.60)
[2021-04-26 12:28] LABS: ESTIMATED AVERAGE GLUCOSE 105 mg/dL (70-100); HEMOGLOBIN A1c% 5.3 % (4.27-6.07)
== END 2021-04-26 07:14 | disposition home or self-care (01) ==
LOC: LAB 07:13
PROVIDERS: ATTEND Obstetrics & Gynecology
DX: Z00.00 Encounter for general adult medical examination without abnormal findings (principal); Z13.1 Encounter for screening for diabetes mellitus; Z13.21 Encounter for screening for nutritional disorder; Z13.29 Encounter for screening for other suspected endocrine disorder; Z13.220 Encounter for screening for lipoid disorders; Z13.0 Encounter for screening for diseases of the blood and blood-forming organs and certain disorders involving the immune mechanism
CPT/HCPCS: 36415; 80053; 80061; 82306; 83036; 83721; 84443; 85027

== ENCOUNTER 2021-08-30 12:56 | Outpatient (CLI) | payer BC ==
--- NOTE | 2021-09-02 14:17 | Ultrasound Report ---
ULTRASOUND OF LEFT AXILLA: 08/30/2021 CLINICAL: Palpable left axilla lump. Comparison is made to exams dated: 03/01/2021 ultrasound and 03/01/2021 mammogram - [facility]. Color flow and real-time ultrasound of the left axilla were performed. Phelps scale images of the jose j l-time examination were reviewed. There is a lymph node in the left axilla which measures 0.6 x 0.6 x 0.2 cm and has a cortical thickne ss of 1.3 mm. It has a normal fatty hilum and reniform morphology. This correlates as palpated. One other similar lymph node is seen. IMPRESSION: BENIGN There is no sonographic evidence of malignancy. The palpable abnormality in the left axilla corresponds to a normal lymph node which is benign. A 2 year screening mammogram is recommended. Findings and recommendations were conveyed to the patient at time of exam. This exam was interpreted at Station ID: [id number]. Electronically Signed By: Sana juarez/:08/30/2021 13:41:46 Ultrasound BI-RADS: 2 Benign BI-RADS CATEGORY: (2) - 2 RECOMMENDATION: (ANNUAL) - Recommend routine annual screening mammography. [id number] 2 year screening LATERALITY: (B)
== END 2021-08-30 12:57 | disposition home or self-care (01) ==
LOC: DI 12:56
PROVIDERS: ATTEND Surgery
DX: R59.0 Localized enlarged lymph nodes (principal)

== ENCOUNTER 2023-08-31 09:56 | Outpatient (CLI) | payer BC ==
--- NOTE | 2023-09-01 12:19 | Mammography Report ---
BILATERAL DIGITAL SCREENING MAMMOGRAM 3D/2D WITH EXAGGERATED CC: 08/31/2023 CLINICAL: Routine screening. Family history of breast cancer. Comparison is made to exam dated: 03/01/2021 mammogram - [facility]. Both breasts are extremely dense, which lowers the sensitivity of mammography (category d />75% gland ular tissue). No significant masses, calcifications, or other findings are seen in either breast. There has been no significant interval change. IMPRESSION: NEGATIVE There is no mammographic evidence of malignancy. A 1 year screening mammogram is recommended. Based on Tyrer-Cuzick model (a risk assessment model), the patient's lifetime risk is 23.1% and her 1 0 year risk is 3.1%. If a patient has an elevated risk, a more comprehensive evaluation should be con sidered and/or a referral to a genetic counselor. The [place] [employer], [employer], and NCCN Guidelines advise the consideration of Breast MRI as an adjunct to screening mammog gabriele in patients whose "Lifetime risk to develop breast cancer" is 20% or higher. This exam was interpreted at Station ID: [id number]. NOTE: For mammograms, a report in lay terms will be sent to the patient. Approximately 15% of breast malignancies will not be visualized mammographically. In the management of a palpable breast mass, a negative mammogram must not discourage biopsy of a clinically suspicious lesion. Electronically Signed By: Conner cruz/moody:08/31/2023 16:09:32 letter sent: No_Letter ACR BI-RADS Category 1: Negative 3341F PARENCHYMAL PATTERN: (VD) - The breast(s) demonstrate(s) extremely dense parenchyma, limiting the sen sitivity of mammography. BI-RADS CATEGORY: (1) - 1 RECOMMENDATION: (ANNUAL) - Recommend routine annual screening mammography. [id number] 1 year screening LATERALITY: (B)
== END 2023-08-31 09:57 | disposition home or self-care (01) ==
LOC: DI.S 09:56
PROVIDERS: ATTEND Registered Nurse
DX: Z12.31 Encounter for screening mammogram for malignant neoplasm of breast (principal); Z80.3 Family history of malignant neoplasm of breast